=== PATIENT | male | born 1990 | race Two or more races ===

== ENCOUNTER 2016-12-31 05:47 | Emergency (ER) | payer SELFPAY ==
[~2016-12-31] VITALS: Ht 165.1 cm; Wt 84.0 kg
[2016-12-31] MEDS ORDERED: ONDANSETRON 4MG ODT PO ONE (06:45)
[2016-12-31] MEDS ORDERED: HYDROCODONE/ACETAMINOPHEN 5/325MG TABLET PO ONE (06:45)
[2016-12-31 07:27] VITALS: BP 131/78
[2016-12-31] MEDS ORDERED: LIDOCAINE HCL 1% 20ML VIAL (Pyxis) INJ INFIL ONE (07:30)
[2016-12-31] MEDS: CEFTRIAXONE SODIUM 1 G/VIAL IM ONE ×2 (07:42→07:43)
== END 2016-12-31 08:13 | disposition home or self-care (01) ==
LOC: ER 07:17
DX: L03.116 Cellulitis of left lower limb (principal)
CPT/HCPCS: 73630; 96372; 99284; J0696; J3490; Q0162; Z7610